=== PATIENT | male | born 1990 | race Caucasian/White ===

== ENCOUNTER 2017-09-25 19:46 | Emergency (ER) | payer SELFPAY ==
[~2017-09-25] VITALS: Ht 172.7 cm; Wt 63.6 kg
[~2017-09-25 19:46] MED LIST: NOCURR
[2017-09-25] MEDS ORDERED: IBUPROFEN 600 MG TABLET PO ONE (22:30)
[2017-09-25 22:34] VITALS: BP 138/74
== END 2017-09-25 22:38 | disposition home or self-care (01) ==
LOC: EMS 19:50
DX: M54.89 Other dorsalgia (principal); F12.90 Cannabis use, unspecified, uncomplicated; V49.59XA Passenger injured in collision with other motor vehicles in traffic accident, initial encounter; Y93.89 Activity, other specified; Y92.89 Other specified places as the place of occurrence of the external cause; Y99.8 Other external cause status
CPT/HCPCS: 99283

== ENCOUNTER 2018-10-09 18:33 | Emergency (ER) | payer SELFPAY ==
[~2018-10-09] VITALS: Ht 172.7 cm; Wt 65.9 kg
[2018-10-09] MEDS: KETOROLAC TROMETHAMINE 10 MG TABLET PO ONE (20:09)
[2018-10-09 20:37] VITALS: BP 136/68
== END 2018-10-09 20:53 | disposition home or self-care (01) ==
LOC: EMS 18:35
DX: S83.91XA Sprain of unspecified site of right knee, initial encounter (principal); F12.90 Cannabis use, unspecified, uncomplicated; X58.XXXA Exposure to other specified factors, initial encounter; Y93.89 Activity, other specified; Y92.89 Other specified places as the place of occurrence of the external cause; Y99.8 Other external cause status
CPT/HCPCS: 29530